=== PATIENT | female | born 1965 | race Hispanic/Latino ===

== ENCOUNTER → 2018-03-24 | Outpatient (CLI) | payer OTHER ==
[~2018-03-24] MED LIST: CEFUROXIME500 MG PO; LEVAQUIN500 MG PO; LISINOPRIL-HCT1 EACH PO; METFORMIN HCL500 MG PO; PRAVASTATIN SOD20 MG PO; PROTONIX40 MG/ML PO; REGLAN10 MG PO; VERAPAMIL ER120 M1 PO
--- NOTE | 2018-03-24 14:28 | Diagnostic Imaging Report ---
PROCEDURE:ABDOMINAL ULTRASOUND COMPARISON:None. INDICATIONS: PAIN/NAUSEA/BLOATING/ABNORMAL CT/DYSPEPSIA/DIARRHEA TECHNIQUE: Transverse and longitudinal images of the upper abdomen were obtained. FINDINGS: Liver: Size: Measures 16.2 cm in the right midclavicular line, normal Appearance: Hyperechoic, smooth contour Mass: No focal masses Spleen: Size: Approximately 19 cm in length, normal Echogenicity: Normal Mass: No focal masses Gallbladder: Stones/Sludge: None Appearance: No wall thickening, pericholecystic fluid or hydrops. Sonographic Vidal's Sign: Negative Bile Ducts: Intrahepatic Ducts: No dilatation Extrahepatic Ducts: Common bile duct measures 0.4 cm, no dilatation Pancreas: Obscured by overlying bowel gas. Right Kidney: Size: 10.1 cm Echogenicity: Normal Collecting System: No hydronephrosis Stone: None Cyst/Mass: None Left Kidney: Size: 10.8 cm Echogenicity: Normal Collecting System: No hydronephrosis Stone: None Cyst/Mass: None Vessels: Aorta: Visualized portions are normal Inferior Vena Cava: Visualized portions and normal Main Portal Vein: 1 cm, normal size with hepatopedal flow. Free Fluid: No ascites or pleural effusions IMPRESSION: No sonographic evidence of cholecystitis. Hepatomegaly with fatty liver. Splenomegaly, measuring 19 cm. Dictated by: JAZLYN GAO M.D. on 03/24/2018 at 14:33 Electronically approved by: JAZLYN GAO M.D. on 03/24/2018 at 14:33
== END ==
LOC: US 12:23
PROVIDERS: ATTEND Internal Medicine Gastroenterology
DX: R10.31 Right lower quadrant pain (principal); R10.32 Left lower quadrant pain; R10.13 Epigastric pain; R14.0 Abdominal distension (gaseous); R11.2 Nausea with vomiting, unspecified; R19.7 Diarrhea, unspecified; K76.0 Fatty (change of) liver, not elsewhere classified; K30 Functional dyspepsia; E66.01 Morbid (severe) obesity due to excess calories; R93.8 Abnormal findings on diagnostic imaging of other specified body structures; Z71.3 Dietary counseling and surveillance
CPT/HCPCS: 76700